=== PATIENT | female | born 2000 | race Caucasian/White ===

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

== ENCOUNTER 2021-01-13 21:27 | Emergency (ER) | payer OTHER ==
[~2021-01-13] VITALS: Ht 162.5 cm; Wt 131.5 kg
[2021-01-13 22:32] LABS: BASO # 0.1 10*3/uL (0.0-0.1); BASO % 0.4 % (0.0-1.0); EOS # 0.1 10*3/uL (0.0-0.4); EOS % 0.8 % (1.0-4.0); HEMATOCRIT 41.5 % (37.0-47.0); LYMPH # 3.3 10*3/uL (1.3-4.4); LYMPH % 26.7 % (27.0-41.0); MEAN CELL VOLUME 89.2 fl (81.0-99.0); MEAN CORPUSCULAR HGB 29.2 pg (27.0-31.0); MEAN CORPUSCULAR HGB CONC 32.8 g/dl (33.0-37.0); MEAN PLATELET VOLUME 9.1 fl (9.6-12.3); MONO # 0.9 10*3/uL (0.1-1.0); MONO % 7.5 % (3.0-9.0); NEUT # 7.9 10*3/uL (2.3-7.9); NEUT % 64.1 % (47.0-73.0); PLATELET COUNT AUTOMATED 354 10*3/uL (130-400); RED BLOOD COUNT 4.65 10*6/uL (4.10-5.10); RED CELL DISTRI WIDTH 12.7 % (0-14.5); WHITE BLOOD COUNT 12.3 10*3/uL (4.8-10.8)
[2021-01-13 22:58] LABS: ALBUMIN 3.3 gm/dl (3.1-4.5); ALKALINE PHOSPHATASE 101 U/L (45-117); BUN 12 mg/dl (7-24); CHLORIDE 107 mmol/L (98-107); CREATININE 0.63 mg/dL (0.55-1.02); LIPASE 89 U/L (73-393); SGOT/AST 14 IU/L (3-35); SGPT/ALT 25 U/L (12-78); SODIUM 138 mmol/L (136-145); TOTAL PROTEIN 7.7 gm/dL (6.4-8.2)
[2021-01-13 22:58] LABS: BILIRUBIN Negative (Negative); BLOOD Negative (Negative); CLARITY Cloudy (Clear); COLOR Yellow (Yellow); GLUCOSE Negative (Negative); KETONE Trace (Negative); LEUKO ESTERASE Trace (Negative); NITRITE Negative (Negative); PH 5.5 (4.5-8.0); SPECIFIC GRAVITY 1.025 (1.001-1.030); UROBILINOGEN 0.2 E.U./dl (0.0-1.0)
[2021-01-13 23:10] LABS: BACTERIA 3+; EPITHELIAL CELLS 16-20; RBC 16-20 rbc/hpf (0-2)
== END 2021-01-14 00:37 | disposition home or self-care (01) ==
LOC: ED 21:27
PROVIDERS: Emergency Medicine; Student in an Organized Health Care Education/Training Program
DX: K82.9 Disease of gallbladder, unspecified (principal); R10.11 Right upper quadrant pain; I10 Essential (primary) hypertension; F41.9 Anxiety disorder, unspecified; Z88.0 Allergy status to penicillin; Z79.2 Long term (current) use of antibiotics; Z79.899 Other long term (current) drug therapy; Z87.42 Personal history of other diseases of the female genital tract

== ENCOUNTER → 2021-01-19 | Outpatient (CLI) | payer OTHER | END | disposition home or self-care (01) | LOC: COVID19 10:40 | PROVIDERS: ATTEND Nurse Practitioner Primary Care | DX: J01.10 Acute frontal sinusitis, unspecified (principal); Z20.822 Contact with and (suspected) exposure to COVID-19 ==

== ENCOUNTER → 2021-04-04 | Outpatient (CLI) | payer OTHER ==
[2021-04-04 10:29] LABS: ALBUMIN 3.4 gm/dl (3.1-4.5); ALKALINE PHOSPHATASE 110 U/L (45-117); BUN 10 mg/dl (7-24); CHLORIDE 106 mmol/L (98-107); CHOLESTEROL 231 mg/dL (<200); CREATININE 0.55 mg/dL (0.55-1.02); LDL CHOLESTEROL 144 mg/dL (9-159); LIPASE 128 U/L (73-393); POTASSIUM 4.3 mmol/L (3.5-5.1); SGOT/AST 11 IU/L (3-35); SGPT/ALT 24 U/L (12-78); SODIUM 138 mmol/L (136-145); TOTAL PROTEIN 7.1 gm/dL (6.4-8.2); TRIGLYCERIDES 199 mg/dl (<150)
== END | disposition home or self-care (01) ==
LOC: LAB 08:48
PROVIDERS: ATTEND Nurse Practitioner Primary Care
DX: K76.0 Fatty (change of) liver, not elsewhere classified (principal)

== ENCOUNTER → 2021-04-18 | Outpatient (CLI) | payer OTHER | END | disposition home or self-care (01) | LOC: D 14:31 | PROVIDERS: ATTEND Nurse Practitioner Primary Care | DX: E66.01 Morbid (severe) obesity due to excess calories (principal) ==

== ENCOUNTER → 2021-04-27 | Outpatient (CLI) | payer OTHER | END | disposition home or self-care (01) | LOC: NM 04-24 10:00 | PROVIDERS: ATTEND Nurse Practitioner Primary Care | DX: R19.7 Diarrhea, unspecified (principal); R11.0 Nausea; R10.11 Right upper quadrant pain ==

== ENCOUNTER → 2021-07-16 | Outpatient (CLI) | payer OTHER ==
[2021-07-16 07:46] LABS: CHOLESTEROL 178 mg/dL (<200); TRIGLYCERIDES 317 mg/dl (<150)
[2021-07-16 07:47] LABS: LDL CHOLESTEROL 66 mg/dL (9-159)
== END | disposition home or self-care (01) ==
LOC: LAB 07:03
PROVIDERS: ATTEND Nurse Practitioner Primary Care
DX: I10 Essential (primary) hypertension (principal)

== ENCOUNTER → 2021-11-14 | Outpatient (CLI) | payer OTHER ==
[2021-11-14 07:35] LABS: ALBUMIN 3.9 gm/dl (3.1-4.5); ALKALINE PHOSPHATASE 97 U/L (45-117); BUN 8 mg/dl (7-24); CHLORIDE 107 mmol/L (98-107); CHOLESTEROL 206 mg/dL (<200); CREATININE 0.57 mg/dL (0.55-1.02); LDL CHOLESTEROL 102 mg/dL (9-159); POTASSIUM 4.1 mmol/L (3.5-5.1); SGOT/AST 15 IU/L (3-35); SGPT/ALT 39 U/L (12-78); SODIUM 140 mmol/L (136-145); TOTAL PROTEIN 7.7 gm/dL (6.4-8.2); TRIGLYCERIDES 291 mg/dl (<150)
== END ==
LOC: LAB 06:51
PROVIDERS: ATTEND Nurse Practitioner Primary Care
DX: I10 Essential (primary) hypertension (principal); E78.5 Hyperlipidemia, unspecified

== ENCOUNTER → 2022-06-11 | Outpatient (CLI) | payer OTHER | END | disposition home or self-care (01) | LOC: RAD 17:15 | PROVIDERS: ATTEND Family Medicine | DX: S99.911A Unspecified injury of right ankle, initial encounter (principal); X58.XXXA Exposure to other specified factors, initial encounter; Y93.89 Activity, other specified; Y92.89 Other specified places as the place of occurrence of the external cause; Y99.8 Other external cause status ==

== ENCOUNTER → 2022-07-01 | Outpatient (CLI) | payer OTHER ==
[2022-07-01 13:08] LABS: ALKALINE PHOSPHATASE 85 U/L (45-117); BUN 5 mg/dl (7-24); CHLORIDE 107 mmol/L (98-107); CREATININE 0.58 mg/dL (0.55-1.02); POTASSIUM 4.3 mmol/L (3.5-5.1); SGOT/AST 14 IU/L (3-35); SGPT/ALT 30 U/L (12-78); SODIUM 139 mmol/L (136-145); TOTAL PROTEIN 7.9 gm/dL (6.4-8.2)
[2022-07-01 13:11] LABS: B-hCG (QUALITATIVE) NEGATIVE (NEGATIVE)
== END ==
LOC: LAB 12:32
PROVIDERS: ATTEND Family Medicine
DX: U07.1 COVID-19 (principal)

== ENCOUNTER → 2022-09-06 | Outpatient (CLI) | payer OTHER | END | disposition home or self-care (01) | LOC: US 12:30 | PROVIDERS: ATTEND Family Medicine | DX: K59.01 Slow transit constipation (principal); K76.0 Fatty (change of) liver, not elsewhere classified; R16.0 Hepatomegaly, not elsewhere classified ==

== ENCOUNTER → 2022-12-19 | Outpatient (CLI) | payer OTHER | END | disposition home or self-care (01) | LOC: NM 00:40 | PROVIDERS: ATTEND Surgery | DX: R10.11 Right upper quadrant pain (principal) ==

== ENCOUNTER → 2023-01-09 | Day surgery (SDC) | payer OTHER ==
[2023-01-06 13:13] VITALS: BP 144/100
[~2023-01-09] VITALS: Ht 162.5 cm; Wt 139.7 kg
[~2023-01-09] MED LIST changes: +COLACE100 MG PO; +HYDROCODONE-AC1 EAC1 PO; +ONDANSETRON HYDR4 M1 PO; +WOMEN'S DAILY1 EAC3 PO
[2023-01-09 11:58] VITALS: BP 118/73
[2023-01-09 14:51] VITALS: BP 140/92
[2023-01-09 15:06] VITALS: BP 136/110
[2023-01-09 15:21] VITALS: BP 145/87
[2023-01-09 15:36] VITALS: BP 156/96
[2023-01-09 15:51] VITALS: BP 139/83
== END | disposition home or self-care (01) ==
LOC: SDC 01-06 12:30
PROVIDERS: ATTEND Surgery
DX: K82.8 Other specified diseases of gallbladder (principal); K81.1 Chronic cholecystitis; I10 Essential (primary) hypertension; F41.9 Anxiety disorder, unspecified; F31.9 Bipolar disorder, unspecified; G43.909 Migraine, unspecified, not intractable, without status migrainosus; E78.00 Pure hypercholesterolemia, unspecified; Z88.0 Allergy status to penicillin

== ENCOUNTER → 2024-04-02 | Outpatient (CLI) | payer OTHER ==
[2024-04-02 17:13] LABS: BASO % 0.3 % (0.0-1.0); EOS # 0.2 10*3/uL (0.0-0.4); EOS % 1.8 % (1.0-4.0); HEMATOCRIT 43.6 % (37.0-47.0); LYMPH # 2.7 10*3/uL (1.3-4.4); LYMPH % 25.7 % (27.0-41.0); MEAN CELL VOLUME 90.1 fl (81.0-99.0); MEAN CORPUSCULAR HGB 29.8 pg (27.0-31.0); MEAN PLATELET VOLUME 9.6 fl (9.6-12.3); MONO # 0.7 10*3/uL (0.1-1.0); MONO % 7.1 % (3.0-9.0); NEUT # 6.7 10*3/uL (2.3-7.9); NEUT % 64.7 % (47.0-73.0); PLATELET COUNT AUTOMATED 379 10*3/uL (130-400); RED BLOOD COUNT 4.84 10*6/uL (4.10-5.10); RED CELL DISTRI WIDTH 12.3 % (0-14.5); WHITE BLOOD COUNT 10.3 10*3/uL (4.8-10.8)
[2024-04-02 17:33] LABS: CHOLESTEROL 252 mg/dL (<200); LDL CHOLESTEROL 149 mg/dL (9-159); TRIGLYCERIDES 311 mg/dl (<150)
[2024-04-02 17:35] LABS: VITAMIN D, 25-HYDROXY 35.9 ng/mL (30-100)
== END | disposition home or self-care (01) ==
LOC: LAB 16:19
PROVIDERS: ATTEND Nurse Practitioner Family
DX: E55.9 Vitamin D deficiency, unspecified (principal); R71.8 Other abnormality of red blood cells; E78.5 Hyperlipidemia, unspecified

== ENCOUNTER → 2024-06-30 | Outpatient (CLI) | payer OTHER ==
[2024-06-30 17:35] LABS: BILIRUBIN Negative (Negative); BLOOD 3+ (Negative); CLARITY Cloudy (Clear); COLOR Yellow (Yellow); GLUCOSE Negative (Negative); KETONE Trace (Negative); LEUKO ESTERASE Negative (Negative); NITRITE Negative (Negative); SPECIFIC GRAVITY 1.025 (1.001-1.030); UROBILINOGEN 0.2 E.U./dl (0.0-1.0)
[2024-06-30 17:48] LABS: BACTERIA 1+; CALCIUM OXALATE CRYSTALS 1+; RBC 51-100 rbc/hpf (0-2)
== END | disposition home or self-care (01) ==
LOC: LAB 17:29
PROVIDERS: ATTEND Nurse Practitioner Family
DX: R10.32 Left lower quadrant pain (principal)

== ENCOUNTER → 2024-07-09 | Outpatient (CLI) | payer OTHER ==
[2024-07-09 08:58] LABS: BASO % 0.4 % (0.0-1.0); EOS # 0.2 10*3/uL (0.0-0.4); EOS % 2.2 % (1.0-4.0); HEMATOCRIT 42.7 % (37.0-47.0); LYMPH # 2.5 10*3/uL (1.3-4.4); LYMPH % 26.3 % (27.0-41.0); MEAN CELL VOLUME 88.8 fl (81.0-99.0); MEAN CORPUSCULAR HGB 29.3 pg (27.0-31.0); MEAN PLATELET VOLUME 9.1 fl (9.6-12.3); MONO # 0.7 10*3/uL (0.1-1.0); MONO % 7.3 % (3.0-9.0); NEUT # 6.1 10*3/uL (2.3-7.9); NEUT % 63.4 % (47.0-73.0); PLATELET COUNT AUTOMATED 332 10*3/uL (130-400); RED BLOOD COUNT 4.81 10*6/uL (4.10-5.10); RED CELL DISTRI WIDTH 12.3 % (0-14.5); WHITE BLOOD COUNT 9.6 10*3/uL (4.8-10.8)
[2024-07-09 09:47] LABS: ALKALINE PHOSPHATASE 100 U/L (46-116); BUN 5 mg/dl (9-23); CHLORIDE 102 mmol/L (98-107); CHOLESTEROL 210 mg/dL (<200); LDL CHOLESTEROL 132 mg/dL (9-159); POTASSIUM 3.9 mmol/L (3.4-5.1); SGPT/ALT 48 U/L (5-49); TOTAL PROTEIN 7.3 gm/dL (6.0-8.0); TRIGLYCERIDES 165 mg/dl (<150)
[2024-07-16 14:09] LABS: TESTOSTERONE FREE, (DIRECT) 1.4 pg/mL (0.0-4.2)
== END | disposition home or self-care (01) ==
LOC: LAB 08:19
PROVIDERS: ATTEND Nurse Practitioner Family
DX: R10.32 Left lower quadrant pain (principal); E28.2 Polycystic ovarian syndrome; F31.9 Bipolar disorder, unspecified

== ENCOUNTER → 2024-12-20 | Outpatient (CLI) | payer OTHER ==
[2024-12-20 17:14] LABS: BASO % 0.5 % (0.0-1.0); EOS # 0.2 10*3/uL (0.0-0.4); EOS % 2.8 % (1.0-4.0); HEMATOCRIT 45.8 % (37.0-47.0); MEAN CELL VOLUME 86.3 fl (81.0-99.0); MEAN CORPUSCULAR HGB 28.2 pg (27.0-31.0); MEAN CORPUSCULAR HGB CONC 32.8 g/dl (33.0-37.0); MEAN PLATELET VOLUME 9.4 fl (9.6-12.3); MONO # 0.6 10*3/uL (0.1-1.0); MONO % 6.5 % (3.0-9.0); NEUT # 5.4 10*3/uL (2.3-7.9); NEUT % 62.3 % (47.0-73.0); PLATELET COUNT AUTOMATED 376 10*3/uL (130-400); RED BLOOD COUNT 5.31 10*6/uL (4.10-5.10); RED CELL DISTRI WIDTH 12.9 % (0-14.5); WHITE BLOOD COUNT 8.6 10*3/uL (4.8-10.8)
[2024-12-20 17:23] LABS: ALKALINE PHOSPHATASE 89 U/L (46-116); BUN 8 mg/dl (9-23); CHLORIDE 103 mmol/L (98-107); CHOLESTEROL 211 mg/dL (<200); LDL CHOLESTEROL 129 mg/dL (9-159); POTASSIUM 4.1 mmol/L (3.4-5.1); SGPT/ALT 316 U/L (5-49); TOTAL PROTEIN 7.7 gm/dL (6.0-8.0); TRIGLYCERIDES 193 mg/dl (<150)
== END | disposition home or self-care (01) ==
LOC: LAB 12:32
PROVIDERS: ATTEND Nurse Practitioner Family
DX: E78.2 Mixed hyperlipidemia (principal); F31.9 Bipolar disorder, unspecified; F64.0 Transsexualism; F41.9 Anxiety disorder, unspecified; E66.01 Morbid (severe) obesity due to excess calories; Z79.890 Hormone replacement therapy

== ENCOUNTER → 2024-12-21 | Outpatient (CLI) | payer OTHER ==
[2024-12-22 07:06] LABS: HBsAG SCREEN Negative (Negative); HCV Ab Non Reactive (Non Reactive); HEP B CORE Ab, IgM Negative (Negative)
== END | disposition home or self-care (01) ==
LOC: ZRHCWE 16:39
PROVIDERS: ATTEND Nurse Practitioner Family
DX: R74.8 Abnormal levels of other serum enzymes (principal)

== ENCOUNTER → 2025-02-10 | Outpatient (CLI) | payer OTHER | END | disposition home or self-care (01) | LOC: LAB 10:15 | PROVIDERS: ATTEND Nurse Practitioner Family | DX: L98.9 Disorder of the skin and subcutaneous tissue, unspecified (principal) ==

== ENCOUNTER → 2025-03-23 | Outpatient (CLI) | payer OTHER ==
[2025-03-23 12:42] LABS: BASO % 0.2 % (0.0-1.0); EOS # 0.2 10*3/uL (0.0-0.4); EOS % 2.3 % (1.0-4.0); HEMATOCRIT 46.4 % (37.0-47.0); MEAN CELL VOLUME 89.1 fl (81.0-99.0); MEAN CORPUSCULAR HGB CONC 32.5 g/dl (33.0-37.0); MEAN PLATELET VOLUME 9.6 fl (9.6-12.3); MONO # 0.7 10*3/uL (0.1-1.0); MONO % 8.1 % (3.0-9.0); NEUT # 5.9 10*3/uL (2.3-7.9); NEUT % 64.2 % (47.0-73.0); PLATELET COUNT AUTOMATED 323 10*3/uL (130-400); RED BLOOD COUNT 5.21 10*6/uL (4.10-5.10); RED CELL DISTRI WIDTH 12.9 % (0-14.5); WHITE BLOOD COUNT 9.2 10*3/uL (4.8-10.8)
[2025-03-23 12:58] LABS: ALKALINE PHOSPHATASE 78 U/L (46-116); BUN 12 mg/dl (9-23); CHLORIDE 103 mmol/L (98-107); CHOLESTEROL 185 mg/dL (<200); LDL CHOLESTEROL 106 mg/dL (9-159); SGPT/ALT 60 U/L (5-49); TOTAL PROTEIN 7.1 gm/dL (6.0-8.0); TRIGLYCERIDES 216 mg/dl (<150)
== END | disposition home or self-care (01) ==
LOC: RHCWE 08:29
PROVIDERS: ATTEND Nurse Practitioner Family
DX: E78.2 Mixed hyperlipidemia (principal); E55.9 Vitamin D deficiency, unspecified; R73.03 Prediabetes; Z79.890 Hormone replacement therapy

== ENCOUNTER → 2025-05-25 | Outpatient (CLI) | payer OTHER ==
[2025-05-25 16:33] LABS: BASO # 0.0 10*3/uL (0.0-0.1); BASO % 0.3 % (0.0-1.0); EOS # 0.2 10*3/uL (0.0-0.4); EOS % 2.4 % (1.0-4.0); MEAN CELL VOLUME 88.4 fl (81.0-99.0); MEAN CORPUSCULAR HGB 28.8 pg (27.0-31.0); MEAN PLATELET VOLUME 9.3 fl (9.6-12.3); MONO # 0.7 10*3/uL (0.1-1.0); MONO % 7.3 % (3.0-9.0); NEUT # 6.3 10*3/uL (2.3-7.9); NEUT % 61.7 % (47.0-73.0); NUCLEATED RED BLOOD CELL 0.0 % (0.0-0.0); NUCLEATED RED BLOOD CELL 0.0 10*3/uL (0.0-0.0); PLATELET COUNT AUTOMATED 332 10*3/uL (130-400); RED CELL DISTRI WIDTH 12.4 % (0-14.5)
[2025-05-25 16:53] LABS: BUN 10 mg/dl (9-23); SGPT/ALT 51 U/L (5-49)
== END | disposition home or self-care (01) ==
LOC: RHCWE 13:34
PROVIDERS: ATTEND Nurse Practitioner Family
DX: E83.52 Hypercalcemia (principal); R55 Syncope and collapse; R42 Dizziness and giddiness

== ENCOUNTER → 2025-08-02 | Outpatient (CLI) | payer OTHER ==
[2025-08-02 17:16] LABS: BASO # 0.0 10*3/uL (0.0-0.1); BASO % 0.4 % (0.0-1.0); EOS # 0.2 10*3/uL (0.0-0.4); EOS % 2.4 % (1.0-4.0); MEAN CELL VOLUME 89.0 fl (81.0-99.0); MEAN CORPUSCULAR HGB 29.2 pg (27.0-31.0); MEAN PLATELET VOLUME 9.4 fl (9.6-12.3); MONO # 0.6 10*3/uL (0.1-1.0); MONO % 7.4 % (3.0-9.0); NEUT # 5.2 10*3/uL (2.3-7.9); NEUT % 62.1 % (47.0-73.0); NUCLEATED RED BLOOD CELL 0.0 % (0.0-0.0); NUCLEATED RED BLOOD CELL 0.0 10*3/uL (0.0-0.0); PLATELET COUNT AUTOMATED 308 10*3/uL (130-400); RED CELL DISTRI WIDTH 12.9 % (0-14.5)
[2025-08-02 17:39] LABS: BUN 8 mg/dl (9-23); LDL CHOLESTEROL 130 mg/dL (9-159); SGPT/ALT 48 U/L (5-49); VITAMIN D, 25-HYDROXY 26.3 ng/mL (30-100)
[2025-08-05 14:07] LABS: TESTOS, FREE 9.9 pg/mL (0.0-4.2)
== END | disposition home or self-care (01) ==
LOC: LAB 12:16
PROVIDERS: ATTEND Nurse Practitioner Family
DX: E78.2 Mixed hyperlipidemia (principal); E55.9 Vitamin D deficiency, unspecified; R73.03 Prediabetes; F64.0 Transsexualism; R53.83 Other fatigue; Z92.29 Personal history of other drug therapy